=== PATIENT | female | born 1960 | race Caucasian/White ===

== ENCOUNTER 2018-12-27 07:59 | Day surgery (SDC) | payer OTHER ==
[2018-12-27] MEDS ORDERED: PROPOFOL 20 ML (09:21)
[2018-12-27] MEDS ORDERED: FENTAnyl 50 MCG/ML VIAL (09:21)
[2018-12-27] MEDS ORDERED: LIDOCAINE 2% (SDV) 5 ML INJ (09:21)
[2018-12-27] MEDS ORDERED: MIDAZOLAM 1 MG/ML 2 ML INJ (09:21)
[2018-12-27] MEDS ORDERED: ONDANSETRON 4 MG INJ IV (09:30)
[2018-12-27] MEDS ORDERED: OXYCODONE/ACETAMINOPHEN (5/325) TAB PO ×2 (09:30)
== END 2018-12-27 11:14 | disposition home or self-care (01) ==
LOC: GIL 07:59
DX: Z12.11 Encounter for screening for malignant neoplasm of colon (principal); E11.9 Type 2 diabetes mellitus without complications; I10 Essential (primary) hypertension; E78.5 Hyperlipidemia, unspecified
CPT/HCPCS: 45378